=== PATIENT | male | born 1985 | race Caucasian/White ===

== ENCOUNTER 2017-11-01 18:57 | Emergency (ER) | payer SELFPAY ==
--- NOTE | 2017-11-01 21:12 | RAD ---
LEFT HAND THREE VIEW 11/01/17 HISTORY: Injury. Pain. COMPARISON: None. FINDINGS: Mild edema of the hypothenar soft tissues. No displaced fracture or malalignment. IMPRESSION: Soft tissue edema. No acute abnormality. POS: [facility]
== END 2017-11-01 20:55 | disposition home or self-care (01) ==
LOC: ERS 18:57
DX: S63.617A Unspecified sprain of left little finger, initial encounter (principal); E03.9 Hypothyroidism, unspecified; I10 Essential (primary) hypertension; K56.609 Unspecified intestinal obstruction, unspecified as to partial versus complete obstruction; F17.220 Nicotine dependence, chewing tobacco, uncomplicated; X50.1XXA Overexertion from prolonged static or awkward postures, initial encounter

== ENCOUNTER 2018-10-12 09:43 | Emergency (ER) | payer OTHER ==
--- NOTE | 2018-10-12 10:20 | RAD ---
SINGLE VIEW OF THE CHEST: COMPARISON: 07/07/2008. HISTORY: Upper chest pain. FINDINGS: Single view of the chest shows a normal sized cardiomediastinal silhouette. There is no evidence of c onsolidation, mass, or pleural effusion. The bones are unremarkable. IMPRESSION: No evidence of acute cardiopulmonary disease. POS: [facility]
[2018-10-12 10:23] LABS: #Basophils 0.1 thou/uL (0.0-0.2); #Eosinphils 0.1 thou/uL (0.0-0.7); #Lymphocytes 1.7 thou/uL (1.20-3.40); #Monocytes 0.4 thou/uL (0.11-0.59); #Neutrophils 4.1 thou/uL (1.40-6.50); %Basophils 1.7 % (0.0-1.0); %Eosinophils 1.8 % (0.0-10.0); %Monocytes 5.6 % (0.0-10.0); Mean Corpuscular HGB CONC 33.1 g/dL (32.0-36.0); Mean Corpuscular Hemoglobin 28.4 pg (27.0-31.0); Mean Corpuscular Volume 85.7 fL (78.0-98.0); Mean Platelet Volume 7.2 fL (7.4-10.4); Platelet Count 276 thou/uL (130-400); RBC Distribution Width 12.2 % (11.5-14.5); Red Blood Cell (RBC) Count 5.29 mill/uL (4.70-6.10); White Blood Cell (WBC) Count 6.4 thou/uL (4.8-10.8)
[2018-10-12] MEDS ORDERED: Aspirin Chewable 81 MG TAB ONE (10:25)
[2018-10-12] MEDS ORDERED: Nitroglycerin 2% Ointment 1 INCH/1 GM Packet ONE (10:25)
[2018-10-12 10:44] LABS: ALT (SGPT) 37 U/L (8-55); AST (SGOT) 21 U/L (5-34); Albumin 4.5 g/dL (3.5-5.0); Alkaline Phosphatase 57 U/L (40-150); Anion Gap 15 mmol/L (10-20); BUN (Urea Nitrogen) 20 mg/dL (8.9-20.6); Bilirubin, Total 0.6 mg/dL (0.2-1.2); CK (CPK) 229 U/L (30-200); Calc. Creatinine Clearance 0 mL/min (70-130); Calcium 9.8 mg/dL (7.8-10.44); Carbon Dioxide 22 mmol/L (22-29); Chloride 105 mmol/L (98-107); Estimated GFR-MDRD 48; Globulin 2.6 g/dL (2.4-3.5); Glucose 91 mg/dL (70-105); Lipase 47 U/L (8-78); Potassium 4.7 mmol/L (3.5-5.1); Protein, Total 7.1 g/dL (6.0-8.3); Sodium 137 mmol/L (136-145)
[2018-10-12] MEDS ORDERED: Acetaminophen 500 MG TAB ONE (14:05)
== END 2018-10-12 14:08 | disposition home or self-care (01) ==
LOC: ERS 09:43
DX: R07.89 Other chest pain (principal); Z71.6 Tobacco abuse counseling; E03.9 Hypothyroidism, unspecified; I10 Essential (primary) hypertension; F17.220 Nicotine dependence, chewing tobacco, uncomplicated
CPT/HCPCS: 36415; 71045; 80053; 82550; 83690; 84484; 85025; 85379; 93005; 99406

== ENCOUNTER 2018-11-11 19:50 | Emergency (ER) | payer OTHER, SELFPAY ==
[2018-11-11] MEDS ORDERED: Lidocaine 1% PF 5 ML VIAL ONE ×2 (20:59→22:00)
[2018-11-11] MEDS ORDERED: HYDROcodone/Acetaminophen 5/325 mg Tablet ONE (22:08)
--- NOTE | 2018-11-11 22:10 | RAD ---
THERE VIEWS RIGHT HAND: History: Crush injury to right pinky. FINDINGS: AP, lateral, and oblique views of the right hand obtained. Again, radiopaque foreign bodies seen in t he distal aspect of the first digit right hand. There is extensive soft tissue injury to the distal a spect of the fifth digit right hand. Some radiopaque material is seen in the soft tissues. The distal phalanx does not appear to be crushed and no evidence of associated PIP or DIP joint abnormality is seen. IMPRESSION: Soft tissue injury without evidence of bony abnormalities in the fifth digit right hand. POS: [facility]
== END 2018-11-11 23:12 | disposition home or self-care (01) ==
LOC: ERS 19:50
DX: S67.196A Crushing injury of right little finger, initial encounter (principal); S61.216A Laceration without foreign body of right little finger without damage to nail, initial encounter; S60.151A Contusion of right little finger with damage to nail, initial encounter; E03.9 Hypothyroidism, unspecified; I10 Essential (primary) hypertension; F17.220 Nicotine dependence, chewing tobacco, uncomplicated; Z79.899 Other long term (current) drug therapy; W23.0XXA Caught, crushed, jammed, or pinched between moving objects, initial encounter
CPT/HCPCS: 11740; 12001; J2001

== ENCOUNTER 2019-01-27 11:24 | Emergency (ER) | payer OTHER ==
[2019-01-27 12:18] LABS: ALT (SGPT) 49 U/L (8-55); AST (SGOT) 21 U/L (5-34); Albumin 4.7 g/dL (3.5-5.0); Alkaline Phosphatase 58 U/L (40-150); Anion Gap 16 mmol/L (10-20); BUN (Urea Nitrogen) 27 mg/dL (8.9-20.6); Bilirubin, Total 0.7 mg/dL (0.2-1.2); Calc. Creatinine Clearance 0 mL/min (70-130); Calcium 9.6 mg/dL (7.8-10.44); Carbon Dioxide 18 mmol/L (22-29); Chloride 107 mmol/L (98-107); Estimated GFR-MDRD 37; Glucose 119 mg/dL (70-105); Lipase 40 U/L (8-78); Potassium 4.9 mmol/L (3.5-5.1); Protein, Total 7.7 g/dL (6.0-8.3); Sodium 136 mmol/L (136-145)
[2019-01-27 12:19] LABS: #Eosinphils 0.1 thou/uL (0.0-0.7); #Lymphocytes 0.8 thou/uL (1.20-3.40); #Monocytes 0.5 thou/uL (0.11-0.59); #Neutrophils 12.6 thou/uL (1.40-6.50); %Basophils 0.1 % (0.0-1.0); %Eosinophils 0.5 % (0.0-10.0); %Lymphocytes 5.7 % (21.0-51.0); %Monocytes 3.8 % (0.0-10.0); %Neutrophils 89.9 % (42.0-75.0); Hemoglobin 16.7 g/dL (14.0-18.0); Mean Corpuscular HGB CONC 34.6 g/dL (32.0-36.0); Mean Corpuscular Hemoglobin 29.4 pg (27.0-31.0); Mean Corpuscular Volume 84.8 fL (78.0-98.0); Mean Platelet Volume 7.7 fL (7.4-10.4); Platelet Count 298 thou/uL (130-400); RBC Distribution Width 12.2 % (11.5-14.5); Red Blood Cell (RBC) Count 5.69 mill/uL (4.70-6.10)
[2019-01-27] MEDS ORDERED: Ondansetron ODT 4 MG TAB ONE (12:20)
[2019-01-27] MEDS ORDERED: Ondansetron PF 4 MG/2 ML Vial ONE (12:54)
[2019-01-27 13:18] LABS: Bilirubin Small (Negative); Blood, Urine Negative (Negative); Clarity CLEAR (Clear); Glucose, Urine (Dipstick) Negative (Negative); Leukocyte Negative (Negative); Nitrite Negative (Negative); Protein, Urine (Dipstick) 300 mg/dL (Neg-Trace); Specific Gravity, Urine 1.023 (1.002-1.036); Urobilinogen 0.2 mg/dL (0.2-1.0)
[2019-01-27 13:24] LABS: Bacteria/HPF None Seen HPF (None Seen); Pathc Cast-AUWi Flag 2.17 (0-2.49); Squamous Epithelial 0-3 HPF (0-3); WBC/HPF 0-3 HPF (0-3)
[2019-01-27 13:36] LABS: Hyaline Casts/LPF 4-6 HYALINE CAST LPF (0-3 Hyaline)
== END 2019-01-27 14:50 | disposition home or self-care (01) ==
LOC: ERS 11:24
DX: R11.2 Nausea with vomiting, unspecified (principal); R19.7 Diarrhea, unspecified; E03.9 Hypothyroidism, unspecified; I10 Essential (primary) hypertension; F17.220 Nicotine dependence, chewing tobacco, uncomplicated; Z79.899 Other long term (current) drug therapy
CPT/HCPCS: 36415; 80053; 81003; 81015; 83690; 85025; 96361; 96374; J2405; Q0162

== ENCOUNTER 2019-06-25 09:03 | Outpatient (CLI) | payer OTHER ==
--- NOTE | 2019-06-25 09:45 | ULT ---
Renal sonogram HISTORY: Solitary kidney. FINDINGS: Right kidney measures up to 11.4 cm. Normal appearance. No hydronephrosis or mass. No kidney is seen at the left renal fossa. Urinary bladder has normal appearance. Right ureteral jet visualized. IMPRESSION: Compensatory hypertrophy right kidney. No left kidney.
== END 2019-06-25 09:04 | disposition home or self-care (01) ==
LOC: BICULT 09:03
PROVIDERS: ATTEND Internal Medicine Nephrology
DX: N18.3 Chronic kidney disease, stage 3 (moderate) (principal); N28.81 Hypertrophy of kidney
CPT/HCPCS: 76775

== ENCOUNTER 2019-09-20 12:02 | Outpatient (CLI) | payer OTHER ==
--- NOTE | 2019-09-20 12:52 | RAD ---
EXAM: Left rib series HISTORY: Rib pain COMPARISON: None FINDINGS: Multiple views of the left ribs shows no evidence of displaced rib fracture. No underlying pleural th ickening or pneumothorax are seen. IMPRESSION: 1. No evidence of displaced rib fracture.
--- NOTE | 2019-09-20 12:52 | RAD ---
EXAM: Chest 2 views: HISTORY: Chest pain COMPARISON: 08/26/2010 FINDINGS: There is a normal-sized cardiomediastinal silhouette. There is no evidence of consolidation, mass, or pleural effusion. The bones are unremarkable. IMPRESSION: No evidence of acute cardiopulmonary disease
--- NOTE | 2019-09-20 12:54 | RAD ---
EXAM: 3 views of the cervical spine HISTORY: Right arm paresthesias COMPARISON: None FINDINGS: AP, lateral, and open mouth odontoid views of the cervical spine shows normal height and al ignment of the vertebral bodies without fracture or subluxation. The intervertebral discs are narrowed throughout the cervical spine with small surrounding osteophytes. No prevertebral soft tissu e swelling is seen. IMPRESSION: Mild degenerative changes of the cervical spine without acute osseous abnormality.
== END 2019-09-20 12:03 | disposition home or self-care (01) ==
LOC: BICRAD 12:02
PROVIDERS: ATTEND Physician Assistant
DX: R07.81 Pleurodynia (principal); R20.2 Paresthesia of skin; M47.812 Spondylosis without myelopathy or radiculopathy, cervical region
CPT/HCPCS: 71046; 72040

== ENCOUNTER 2019-11-24 23:33 | Emergency (ER) | payer OTHER ==
[2019-11-25 00:12] LABS: #Basophils 0.2 thou/uL (0.0-0.2); #Lymphocytes 1.5 thou/uL (1.20-3.40); #Monocytes 0.3 thou/uL (0.11-0.59); #Neutrophils 6.4 thou/uL (1.40-6.50); %Basophils 2.3 % (0.0-1.0); %Eosinophils 0.5 % (0.0-10.0); %Lymphocytes 18.1 % (21.0-51.0); %Neutrophils 75.1 % (42.0-75.0); Hemoglobin 16.4 g/dL (14.0-18.0); Mean Corpuscular HGB CONC 35.9 g/dL (32.0-36.0); Mean Corpuscular Hemoglobin 30.3 pg (27.0-31.0); Mean Corpuscular Volume 84.3 fL (78.0-98.0); Mean Platelet Volume 7.7 fL (7.4-10.4); Platelet Count 279 thou/uL (130-400); RBC Distribution Width 11.9 % (11.5-14.5); Red Blood Cell (RBC) Count 5.41 mill/uL (4.70-6.10); White Blood Cell (WBC) Count 8.5 thou/uL (4.8-10.8)
[2019-11-25 00:23] LABS: ALT (SGPT) 49 U/L (8-55); AST (SGOT) 20 U/L (5-34); Albumin 4.3 g/dL (3.5-5.0); Alkaline Phosphatase 68 U/L (40-110); Anion Gap 14 mmol/L (10-20); BUN (Urea Nitrogen) 21 mg/dL (8.9-20.6); Bilirubin, Total 0.4 mg/dL (0.2-1.2); Calc. Creatinine Clearance 0 mL/min (70-130); Calcium 9.9 mg/dL (7.8-10.44); Carbon Dioxide 24 mmol/L (22-29); Chloride 104 mmol/L (98-107); Estimated GFR-MDRD 39; Globulin 3.2 g/dL (2.4-3.5); Glucose 135 mg/dL (70-105); Potassium 4.3 mmol/L (3.5-5.1); Protein, Total 7.5 g/dL (6.0-8.3); Sodium 138 mmol/L (136-145)
[2019-11-25] MEDS ORDERED: Aspirin Chewable 81 MG TAB ONE (01:05)
--- NOTE | 2019-11-25 08:02 | RAD ---
PORTABLE CHEST: DATE: 11/25/2019. PROVIDED CLINICAL HISTORY: Chest pain. FINDINGS: Comparison 10/12/2018. Cardiac and mediastinal silhouette is within normal limits. Lungs are hypoinflated with accentuation of pulmonary bronchovascular markings. No focal consolidation, pleural fluid, or pneumothorax appar ent. IMPRESSION: Hypoinflated exam without evidence for an acute cardiopulmonary process. POS: [facility]
== END 2019-11-25 04:34 | disposition home or self-care (01) ==
LOC: ERS 23:33
DX: R07.9 Chest pain, unspecified (principal); R00.2 Palpitations; E03.9 Hypothyroidism, unspecified; I10 Essential (primary) hypertension; F17.220 Nicotine dependence, chewing tobacco, uncomplicated; Z79.899 Other long term (current) drug therapy
CPT/HCPCS: 36415; 71045; 80053; 83735; 84443; 84484; 85025; 85379; 93005; 96360; 96361

== ENCOUNTER 2020-03-07 12:05 | Emergency (ER) | payer OTHER | END 2020-03-07 13:30 | disposition home or self-care (01) | LOC: ERS 12:05 | DX: M54.5 Low back pain (principal); F17.220 Nicotine dependence, chewing tobacco, uncomplicated; E03.9 Hypothyroidism, unspecified; I10 Essential (primary) hypertension; Z79.899 Other long term (current) drug therapy | CPT/HCPCS: 99283 ==

== ENCOUNTER 2020-07-02 07:00 | Outpatient (CLI) | payer OTHER ==
[2020-07-02 18:56] LABS: Hemoglobin 14.4 g/dL (14.0-18.0); Mean Corpuscular Hemoglobin 29.1 PG (27.0-33.0); Mean Corpuscular Volume 83.4 fl (80.0-100.0); Mean Platelet Volume 10.1 fl (7.4-10.4); Platelet Count 243 10x3/uL (130-400); RBC Distribution Width 12.3 % (11.5-14.5); Red Blood Cell (RBC) Count 4.94 10x6/uL (4.40-5.80); White Blood Cell (WBC) Count 7.1 10x3/uL (4.5-11.0)
[2020-07-02 19:31] LABS: Anion Gap 16 mmol/L (10-20); BUN (Urea Nitrogen) 30 mg/dL (8.9-20.6); Calc. Creatinine Clearance 0 mL/min (70-130); Calcium 9.2 mg/dL (7.8-10.44); Carbon Dioxide 22 mmol/L (22-29); Chloride 104 mmol/L (98-107); Estimated GFR-MDRD 31; Glucose 90 mg/dL (70-105); Potassium 4.9 mmol/L (3.5-5.1); Sodium 137 mmol/L (136-145)
[2020-07-03 15:04] LABS: SARS-CoV-2 MS2 Positive; SARS-CoV-2 N Gene Negative; SARS-CoV-2 S Gene Negative; SARS-CoV-2 by NAA Not Detected (NotDetected); SARS-CoV-2 orf1ab Negative
== END 2020-07-02 07:01 | disposition home or self-care (01) ==
LOC: LABBT 07:00
PROVIDERS: ATTEND Urology
DX: Z01.812 Encounter for preprocedural laboratory examination (principal); Z20.828 Contact with and (suspected) exposure to other viral communicable diseases; N18.9 Chronic kidney disease, unspecified
CPT/HCPCS: 80048; 85027; 86850; 86900; 86901; 87635; U0003

== ENCOUNTER 2020-07-07 07:47 | Day surgery (SDC) | payer OTHER ==
[2020-07-06 15:14] VITALS: BMI 34.0
[2020-07-07] MEDS ORDERED: Fentanyl 100 MCG/2 ML VIAL ONE ×2 (08:53→12:08)
[2020-07-07] MEDS ORDERED: SUGAMMADEX SODIUM 200 MG/2 ML VIAL ONE (08:54)
[2020-07-07 09:45] LABS: Prothrombin Time 13.9 sec (12.0-14.7)
[2020-07-07 09:46] LABS: PTT 32.6 sec (22.9-36.1)
[2020-07-07] MEDS ORDERED: Bupivacaine PF 0.5% 30 ML VIAL ONE (10:23)
[2020-07-07] MEDS ORDERED: Lidocaine 1% w/Epinephrine 1:100K 20 ML VIAL ONE (10:23)
[2020-07-07] MEDS ORDERED: Rocuronium Bromide 10 MG/ML (10ML VIAL) ONE (11:30)
[2020-07-07] MEDS ORDERED: Succinylcholine 200 MG/10 ml SYRINGE FS ONE (11:30)
[2020-07-07] MEDS ORDERED: ePHEDrine 50 MG/ML VIAL ONE (11:30)
[2020-07-07] MEDS ORDERED: PROPOFOL 200 MG/20 ML VIAL ONE (11:30)
[2020-07-07] MEDS ORDERED: Lidocaine 1% PF 5 ML VIAL ONE (11:30)
[2020-07-07] MEDS ORDERED: Morphine Sulfate 2 MG/ML SYRINGE SLOW IVP PRN (11:49)
[2020-07-07] MEDS ORDERED: HYDROmorphone 2 MG/ML VIAL SLOW IVP PRN (11:49)
[2020-07-07] MEDS ORDERED: Ondansetron HCl/PF 4 MG/2 ML Vial IVP PRN (11:49)
[2020-07-07] MEDS ORDERED: PACU-Morphine 4MG/ML VIAL SLOW IVP PRN (11:49)
[2020-07-07] MEDS ORDERED: Promethazine HCl 25 MG/ML VIAL SLOW IVP PRN (11:49)
[2020-07-07] MEDS ORDERED: Promethazine HCl 25 MG/ML VIAL IM PRN (11:49)
[2020-07-07] MEDS ORDERED: Meperidine HCl/PF 25 MG/ML VIAL SLOW IVP PRN (11:49)
[2020-07-07] MEDS ORDERED: Morphine 4 MG/ML VIAL ONE (12:26)
[2020-07-07] MEDS ORDERED: Morphine 2 MG/ML VIAL ONE (12:39)
[2020-07-07] MEDS ORDERED: HYDROcodone/Acetaminophen 5/325 mg Tablet ONE (13:03)
--- NOTE | 2020-07-07 18:44 | OP ---
DATE OF PROCEDURE: 07/07/2020 PREOPERATIVE DIAGNOSES: Chronic kidney disease, right solitary kidney. POSTOPERATIVE DIAGNOSES: Chronic kidney disease, right solitary kidney. PROCEDURE PERFORMED: Laparoscopic right renal biopsy. ANESTHESIA: General. COMPLICATIONS: None. BLOOD LOSS: None. SPECIMEN: Renal Rosales-Cut biopsy x3. DESCRIPTION OF PROCEDURE: After informed consent, the patient was taken to the operating room, transferred to the table on his own power. Anesthesia was established. A time-out was performed ensuring the correct patient, site, and procedure. Preoperative antibiotics were administered. He was prepped and draped in the lateral position with the right side up. I began by obtaining insufflation with a Veress needle. I then passed a 5 mm camera trocar lateral to the umbilicus. The camera was then inserted, noting no intraabdominal injuries. A second trocar was placed in the right upper quadrant and I was able to use a cautery hook to take down the attachments of the colon to the right wall. I was able to expose the right kidney, and under direct visualization, passed a Rosales-Cut biopsy through a small stab incision on his right flank, where I had obtained access with the Veress needle and performed 3 biopsies using the Rosales-Cut biopsy needle. Compression using a laparoscopic peanut was performed after each biopsy. Once the biopsies were taken, there was no active bleeding and no hematoma. The camera was removed and then the belly deflated before removing the trocars. The incisions were closed with 4-0 Monocryl and Dermabond. He was then awoken from anesthesia, transferred back to his hospital bed, and taken to PACU in stable condition, where he will discharge home upon recovery. Job ID: [id number]
== END 2020-07-07 14:02 | disposition home or self-care (01) ==
LOC: SDC 07:47
PROVIDERS: ATTEND Urology
PROC: 0TB04ZX Excision of Right Kidney, Percutaneous Endoscopic Approach, Diagnostic (ICD-10-PCS; principal; 2020-07-07)
DX: Q60.0 Renal agenesis, unilateral (principal); N18.9 Chronic kidney disease, unspecified; N17.9 Acute kidney failure, unspecified; N26.9 Renal sclerosis, unspecified; E66.9 Obesity, unspecified; Z68.34 Body mass index [BMI] 34.0-34.9, adult; Z79.899 Other long term (current) drug therapy; Z88.1 Allergy status to other antibiotic agents
CPT/HCPCS: 36415; 85610; 85730; 86850; 86900; 86901; 88329; J0690; J2270; J2704; J3010; J3490; S0020

== ENCOUNTER 2020-08-23 18:22 | Emergency (ER) | payer OTHER ==
--- NOTE | 2020-08-23 18:48 | RAD ---
XR Foot Rt 3 View STANDARD INDICATION: Right foot pain COMPARISON: None. FINDINGS: Bones: No acute fracture identified. Joints: Joints spaces appear preserved. Lisfranc alignment: Lisfranc alignment appears within normal limits. Soft tissues: No soft tissue injury demonstrated. No radiographic foreign body demonstrated. IMPRESSION: No acute osseous abnormality.
--- NOTE | 2020-08-23 18:51 | RAD ---
XR Ankle Rt 3 View STANDARD INDICATION: Ankle injury. COMPARISON: None. FINDINGS: Bones: Intact. Ankle mortise: Symmetric. Talar Dome: Intact. Subtalar joint: Normal. Visualized hindfoot: Normal. Periarticular soft tissues: Normal. IMPRESSION: 1. No acute fracture or subluxation demonstrated.
== END 2020-08-23 19:46 | disposition home or self-care (01) ==
LOC: ERS 18:22
DX: S93.601A Unspecified sprain of right foot, initial encounter (principal); I10 Essential (primary) hypertension; E03.9 Hypothyroidism, unspecified; F17.220 Nicotine dependence, chewing tobacco, uncomplicated; F17.200 Nicotine dependence, unspecified, uncomplicated; X50.1XXA Overexertion from prolonged static or awkward postures, initial encounter

== ENCOUNTER 2020-08-27 18:44 | Emergency (ER) | payer OTHER | END 2020-08-27 19:56 | disposition home or self-care (01) | LOC: ERS 18:44 | DX: M79.671 Pain in right foot (principal); E03.9 Hypothyroidism, unspecified; I10 Essential (primary) hypertension; F17.220 Nicotine dependence, chewing tobacco, uncomplicated | CPT/HCPCS: 99283 ==

== ENCOUNTER 2022-11-11 15:47 | Inpatient (IN) | payer OTHER ==
[2022-11-11 16:21] LABS: #Eosinphils 0.2 thou/uL (0.0-0.7); #Lymphocytes 2.7 thou/uL (1.20-3.40); #Monocytes 0.4 thou/uL (0.11-0.59); %Basophils 0.4 % (0.0-1.0); %Lymphocytes 32.4 % (21.0-51.0); %Monocytes 4.9 % (0.0-10.0); %Neutrophils 60.3 % (42.0-75.0); Hemoglobin 14.3 g/dL (14.0-18.0); Mean Corpuscular HGB CONC 35.6 g/dL (32.0-36.0); Mean Corpuscular Hemoglobin 31.2 pg (27.0-31.0); Mean Corpuscular Volume 87.8 fl (78.0-98.0); Mean Platelet Volume 7.2 fL (7.4-10.4); Platelet Count 265 10x3/uL (130-400); RBC Distribution Width 12.1 % (11.5-14.5); Red Blood Cell (RBC) Count 4.57 mill/uL (4.70-6.10); White Blood Cell (WBC) Count 8.2 10x3/uL (4.8-10.8)
[2022-11-11 16:23] LABS: Bacteria/HPF None Seen HPF (None Seen); Bilirubin Negative (Negative); Blood, Urine 1+ (Negative); Clarity Clear (Clear); Glucose, Urine (Dipstick) Normal (Negative); Ketone, Urine Negative (Negative); Leukocyte Negative Leu/uL (Negative); Nitrite Negative (Negative); Protein, Urine (Dipstick) 200 mg/dL (Neg-Trace); RBC/HPF 0-3 HPF (0-3); Squamous Epithelial 0-3 HPF (0-3); Urobilinogen Normal mg/dL (Less than 2); WBC/HPF 0-3 HPF (0-3)
[2022-11-11 16:45] LABS: ALT (SGPT) 30 U/L (8-55); AST (SGOT) 20 U/L (5-34); Albumin 4.3 g/dL (3.5-5.0); Alkaline Phosphatase 61 U/L (40-110); Anion Gap 16 mmol/L (10-20); BUN (Urea Nitrogen) 49 mg/dL (8.9-20.6); Bilirubin, Total 0.3 mg/dL (0.2-1.2); Calc. Creatinine Clearance 0 mL/min (70-130); Calcium 9.5 mg/dL (7.8-10.44); Carbon Dioxide 22 mmol/L (22-29); Chloride 106 mmol/L (98-107); Estimated GFR 12; Globulin 2.9 g/dL (2.4-3.5); Glucose 89 mg/dL (70-105); Lipase 73 U/L (8-78); Potassium 3.9 mmol/L (3.5-5.1); Protein, Total 7.2 g/dL (6.0-8.3); Sodium 140 mmol/L (136-145)
[2022-11-11] MEDS ORDERED: Meropenem 1 GM in Sodium Chloride 0.9% 100 ML IVPB SCH (16:45)
[2022-11-11 17:07] LABS: CKMB 3.1 ng/mL (0-6.6)
[2022-11-11] MEDS ORDERED: Ondansetron ODT 4 MG TAB PO PRN (20:55)
[2022-11-11] MEDS ORDERED: Ondansetron PF 4 MG/2 ML Vial IVP PRN (20:55)
[2022-11-11] MEDS ORDERED: Acetaminophen 650 MG Suppository PR PRN (20:55)
[2022-11-11 21:50] VITALS: BMI 35.9
[2022-11-11 22:36] LABS: Troponin I 0.065 ng/mL (< 0.028)
[2022-11-11 22:40] LABS: SARS-CoV-2 NAA Rapid Test Not Detected (NotDetected)
[2022-11-12] MEDS: hydrALAZINE 20 MG/ML VIAL SLOW IVP PRN ×2 (00:30→05:50)
[2022-11-12] MEDS: Acetaminophen 325 MG TAB PO PRN ×3 (01:30→13:31)
[2022-11-12 04:29] LABS: #Eosinphils 0.1 thou/uL (0.0-0.7); #Lymphocytes 2.4 thou/uL (1.20-3.40); #Monocytes 0.5 thou/uL (0.11-0.59); #Neutrophils 5.3 thou/uL (1.40-6.50); %Basophils 0.5 % (0.0-1.0); %Eosinophils 1.6 % (0.0-10.0); %Lymphocytes 28.4 % (21.0-51.0); %Monocytes 5.6 % (0.0-10.0); %Neutrophils 63.9 % (42.0-75.0); Hemoglobin 13.2 g/dL (14.0-18.0); Mean Corpuscular HGB CONC 35.7 g/dL (32.0-36.0); Mean Corpuscular Hemoglobin 31.3 pg (27.0-31.0); Mean Corpuscular Volume 87.6 fl (78.0-98.0); Mean Platelet Volume 7.5 fL (7.4-10.4); Platelet Count 225 10x3/uL (130-400); RBC Distribution Width 12.2 % (11.5-14.5); Red Blood Cell (RBC) Count 4.22 mill/uL (4.70-6.10); White Blood Cell (WBC) Count 8.3 10x3/uL (4.8-10.8)
[2022-11-12 04:51] LABS: Anion Gap 13 mmol/L (10-20); BUN (Urea Nitrogen) 49 mg/dL (8.9-20.6); Calc. Creatinine Clearance 28 mL/min (70-130); Carbon Dioxide 22 mmol/L (22-29); Chloride 107 mmol/L (98-107); Estimated GFR 12; Glucose 92 mg/dL (70-105); Potassium 3.9 mmol/L (3.5-5.1); Sodium 138 mmol/L (136-145)
[2022-11-12] MEDS: Levothyroxine 150 MCG TAB PO SCH (05:48)
[2022-11-12] MEDS ORDERED: Sodium Chloride 0.65% Nasal 44 ML BOT EA NARE PRN (07:58)
[2022-11-12] MEDS ORDERED: hydrALAZINE 20 MG/ML VIAL SLOW IVP SCH (08:15)
[2022-11-12] MEDS: Calcitriol 0.25 MCG CAP PO SCH (08:48)
[2022-11-12] MEDS: Allopurinol 100 MG TAB PO SCH (08:48)
[2022-11-12] MEDS: Atorvastatin Calcium 10 MG TAB PO SCH (08:48)
[2022-11-12] MEDS: Cholecalciferol (Vitamin D3) 400 UNITS TAB PO SCH (08:48)
[2022-11-12] MEDS ORDERED: hydrALAZINE 25 MG TAB PO SCH (09:00)
[2022-11-12] MEDS ORDERED: cloNIDine 0.1mg/24 Hour PATCH TD SCH (09:00)
[2022-11-12] MEDS ORDERED: Labetalol HCl 100 MG/20 ML VIAL SLOW IVP PRN (09:07)
[2022-11-12] MEDS ORDERED: Morphine 2 MG/ML VIAL SLOW IVP PRN (10:57)
[2022-11-12] MEDS: hydrALAZINE 25 MG TAB PO SCH ×2 (13:25→20:27)
[2022-11-12] MEDS ORDERED: niCARdipine 40MG In NaCl 40 MG/200 ML BAG IVPB SCH (15:45)
[2022-11-12] MEDS: niCARdipine 50 MG in Sodium Chloride 0.9% 250 ML 230 ML IV SCH ×2 (16:50→19:28)
[2022-11-12] MEDS ORDERED: Melatonin 3 MG TAB PO SCH (20:00)
[2022-11-12] MEDS ORDERED: Acetaminophen 500 MG TAB PO SCH (20:15)
[2022-11-12] MEDS: Fluticasone Propionate Nasal Spray 16 gm Bottle NASAL SCH (20:22)
[2022-11-12] MEDS: Heparin 5,000 UNITS/ML VIAL SC SCH (20:27)
[2022-11-12] MEDS ORDERED: Sodium Chloride 0.9% 500 ML IV SCH (20:45)
[2022-11-12 21:12] LABS: Amphetamine Not Detected (NotDetected); Barbiturates Screen Not Detected (NotDetected); Benzodiazepine Screen Not Detected (NotDetected); Cocaine Metabolite Screen Not Detected (NotDetected); Methadone Not Detected (NotDetected); Methamphetamine Not Detected (NotDetected); Opiate Screen Detected (NotDetected); Oxycodone Screen Not Detected (NotDetected); Phencyclidine (PCP) Not Detected (NotDetected); THC/Cannabinoid Screen Not Detected (NotDetected); Tricyclic Screen Not Detected (NotDetected)
[2022-11-13] MEDS: niCARdipine 50 MG in Sodium Chloride 0.9% 250 ML 230 ML IV SCH (00:59)
[2022-11-13 04:01] LABS: #Eosinphils 0.1 thou/uL (0.0-0.7); #Lymphocytes 1.2 thou/uL (1.20-3.40); #Monocytes 0.6 thou/uL (0.11-0.59); %Basophils 0.3 % (0.0-1.0); %Eosinophils 0.7 % (0.0-10.0); %Lymphocytes 14.8 % (21.0-51.0); %Monocytes 7.1 % (0.0-10.0); %Neutrophils 77.1 % (42.0-75.0); Hemoglobin 12.8 g/dL (14.0-18.0); Mean Corpuscular HGB CONC 35.3 g/dL (32.0-36.0); Mean Corpuscular Hemoglobin 31.2 pg (27.0-31.0); Mean Corpuscular Volume 88.4 fl (78.0-98.0); Mean Platelet Volume 7.5 fL (7.4-10.4); Platelet Count 207 10x3/uL (130-400); RBC Distribution Width 12.3 % (11.5-14.5); White Blood Cell (WBC) Count 7.7 10x3/uL (4.8-10.8)
[2022-11-13 04:18] LABS: Anion Gap 16 mmol/L (10-20); BUN (Urea Nitrogen) 53 mg/dL (8.9-20.6); Calc. Creatinine Clearance 25 mL/min (70-130); Calcium 8.9 mg/dL (7.8-10.44); Carbon Dioxide 20 mmol/L (22-29); Chloride 109 mmol/L (98-107); Estimated GFR 11; Glucose 97 mg/dL (70-105); Sodium 140 mmol/L (136-145)
[2022-11-13] MEDS: Levothyroxine 150 MCG TAB PO SCH (05:30)
[2022-11-13] MEDS: NIFEdipine XL 30 MG TAB PO SCH (08:36)
[2022-11-13] MEDS: hydrALAZINE 25 MG TAB PO SCH ×3 (08:36→20:40)
[2022-11-13] MEDS: Heparin 5,000 UNITS/ML VIAL SC SCH ×2 (08:36→20:39)
[2022-11-13] MEDS ORDERED: Midazolam HCl 2 mg/2 ml Vial ONE (10:50)
[2022-11-13] MEDS ORDERED: FENTANYL 50 MCG/ML 1 ML VIAL ONE (10:50)
[2022-11-13] MEDS ORDERED: Ketamine 50 MG/ML (10ML VIAL) ONE (10:54)
[2022-11-13] MEDS ORDERED: PROPOFOL 200 MG/20 ML VIAL ONE (11:45)
[2022-11-13] MEDS: Allopurinol 100 MG TAB PO SCH (13:02)
[2022-11-13] MEDS: Cholecalciferol (Vitamin D3) 400 UNITS TAB PO SCH (13:02)
[2022-11-13] MEDS: Atorvastatin Calcium 10 MG TAB PO SCH (13:03)
[2022-11-13] MEDS: Calcitriol 0.25 MCG CAP PO SCH (13:03)
[2022-11-13] MEDS: Fluticasone Propionate Nasal Spray 16 gm Bottle NASAL SCH (13:04)
[2022-11-13 15:04] LABS: HBSAB Concentration Less than 8.00 mIU/mL; HBSAg Index 0.25 S/CO (0-0.99); Hep B Core Total Ab Non-Reactive (NonReactive); Hep B Core Total Index 0.05 S/CO (0-0.79); Hep B Surf Ag Non-Reactive S/CO (NonReactive); Hep C IgG Ab Non-Reactive (NonReactive); Hep C Index 0.07 S/CO (0-0.79)
[2022-11-13] MEDS ORDERED: Heparin 10,000 UNITS/ 10 ML VIAL ONE (15:58)
[2022-11-13 16:21] LABS: Hep B Surf AB NonReactive (NonReactive)
[2022-11-14 05:02] LABS: #Eosinphils 0.1 thou/uL (0.0-0.7); #Lymphocytes 1.8 thou/uL (1.20-3.40); #Monocytes 0.6 thou/uL (0.11-0.59); %Basophils 0.4 % (0.0-1.0); %Eosinophils 1.8 % (0.0-10.0); %Lymphocytes 27.2 % (21.0-51.0); %Monocytes 8.8 % (0.0-10.0); %Neutrophils 61.9 % (42.0-75.0); Hemoglobin 12.9 g/dL (14.0-18.0); Mean Corpuscular HGB CONC 35.5 g/dL (32.0-36.0); Mean Corpuscular Hemoglobin 31.6 pg (27.0-31.0); Mean Corpuscular Volume 88.9 fl (78.0-98.0); Mean Platelet Volume 7.8 fL (7.4-10.4); Platelet Count 181 10x3/uL (130-400); Red Blood Cell (RBC) Count 4.09 mill/uL (4.70-6.10); White Blood Cell (WBC) Count 6.5 10x3/uL (4.8-10.8)
[2022-11-14] MEDS: Levothyroxine 150 MCG TAB PO SCH (05:16)
[2022-11-14 05:26] LABS: Anion Gap 15 mmol/L (10-20); BUN (Urea Nitrogen) 50 mg/dL (8.9-20.6); Calc. Creatinine Clearance 28 mL/min (70-130); Calcium 9.1 mg/dL (7.8-10.44); Carbon Dioxide 22 mmol/L (22-29); Chloride 105 mmol/L (98-107); Estimated GFR 13; Glucose 95 mg/dL (70-105); Potassium 4.3 mmol/L (3.5-5.1); Sodium 138 mmol/L (136-145)
[2022-11-14] MEDS: Atorvastatin Calcium 10 MG TAB PO SCH (08:41)
[2022-11-14] MEDS: hydrALAZINE 25 MG TAB PO SCH ×4 (08:41→20:37)
[2022-11-14] MEDS: Heparin 5,000 UNITS/ML VIAL SC SCH ×2 (08:41→20:37)
[2022-11-14] MEDS: Cholecalciferol (Vitamin D3) 400 UNITS TAB PO SCH (08:42)
[2022-11-14] MEDS: NIFEdipine XL 30 MG TAB PO SCH (08:42)
[2022-11-14] MEDS: Calcitriol 0.25 MCG CAP PO SCH (08:42)
[2022-11-14] MEDS: Allopurinol 100 MG TAB PO SCH (08:42)
[2022-11-14] MEDS: Fluticasone Propionate Nasal Spray 16 gm Bottle NASAL SCH (08:43)
[2022-11-14] MEDS ORDERED: Tuberculin PPD 0.1 ML VIAL I-DERMAL SCH ×2 (08:45→09:15)
[2022-11-14] MEDS ORDERED: Activase 2 MG VIAL CATH SCH ×2 (11:00→13:30)
[2022-11-14] MEDS ORDERED: Sterile Water 10 ML VIAL IVP SCH (11:00)
[2022-11-15 05:10] LABS: #Eosinphils 0.2 thou/uL (0.0-0.7); #Lymphocytes 2.4 thou/uL (1.20-3.40); #Monocytes 0.5 thou/uL (0.11-0.59); #Neutrophils 3.7 thou/uL (1.40-6.50); %Basophils 0.5 % (0.0-1.0); %Eosinophils 2.7 % (0.0-10.0); %Monocytes 7.1 % (0.0-10.0); %Neutrophils 54.8 % (42.0-75.0); Hemoglobin 13.3 g/dL (14.0-18.0); Mean Corpuscular HGB CONC 35.9 g/dL (32.0-36.0); Mean Corpuscular Hemoglobin 31.8 pg (27.0-31.0); Mean Corpuscular Volume 88.3 fl (78.0-98.0); Mean Platelet Volume 7.8 fL (7.4-10.4); Platelet Count 177 10x3/uL (130-400); RBC Distribution Width 11.9 % (11.5-14.5); White Blood Cell (WBC) Count 6.8 10x3/uL (4.8-10.8)
[2022-11-15 05:28] LABS: Anion Gap 16 mmol/L (10-20); BUN (Urea Nitrogen) 50 mg/dL (8.9-20.6); Calc. Creatinine Clearance 29 mL/min (70-130); Calcium 8.8 mg/dL (7.8-10.44); Carbon Dioxide 19 mmol/L (22-29); Chloride 105 mmol/L (98-107); Estimated GFR 14; Glucose 105 mg/dL (70-105); Magnesium 2.2 mg/dL (1.6-2.6); Sodium 136 mmol/L (136-145)
[2022-11-15 05:29] LABS: Phosphorus 5.8 mg/dL (2.3-4.7)
[2022-11-15] MEDS: Levothyroxine 150 MCG TAB PO SCH (06:40)
[2022-11-15] MEDS ORDERED: Bupivacaine HCl 0.5%/Epinephrine 1:200,000/PF 30 ml Vial ONE (08:46)
[2022-11-15] MEDS ORDERED: Heparin 10,000 UNITS/ 10 ML VIAL ONE (08:46)
[2022-11-15] MEDS ORDERED: Lidocaine 2% PF 5 ML VIAL ONE (08:46)
[2022-11-15] MEDS ORDERED: Sodium Chloride 0.9% 100 ML ONE (09:02)
[2022-11-15] MEDS ORDERED: CEFAZOLIN 2 GM VIAL ONE (09:02)
[2022-11-15] MEDS ORDERED: PROPOFOL 40 ML ONE (09:06)
[2022-11-15] MEDS ORDERED: fentaNYL PF 100 MCG/2 ML SYRINGE ONE (09:06)
[2022-11-15] MEDS ORDERED: PROPOFOL 200 MG/20 ML VIAL ONE (09:07)
[2022-11-15] MEDS ORDERED: Lidocaine 1% PF 5 ML VIAL ONE (09:07)
[2022-11-15] MEDS ORDERED: Ondansetron HCl/PF 4 MG/2 ML Vial IVP PRN (10:30)
[2022-11-15] MEDS ORDERED: Promethazine HCl 25 MG/ML VIAL IM PRN (10:30)
[2022-11-15] MEDS: Fluticasone Propionate Nasal Spray 16 gm Bottle NASAL SCH (11:18)
[2022-11-15] MEDS: Heparin 5,000 UNITS/ML VIAL SC SCH ×2 (11:19→20:37)
[2022-11-15] MEDS: Calcitriol 0.25 MCG CAP PO SCH (11:19)
[2022-11-15] MEDS: hydrALAZINE 25 MG TAB PO SCH ×3 (11:19→18:46)
[2022-11-15] MEDS: Atorvastatin Calcium 10 MG TAB PO SCH (11:20)
[2022-11-15] MEDS: Allopurinol 100 MG TAB PO SCH (11:20)
[2022-11-15] MEDS: NIFEdipine XL 30 MG TAB PO SCH (11:20)
[2022-11-15] MEDS: Cholecalciferol (Vitamin D3) 400 UNITS TAB PO SCH (11:21)
[2022-11-15] MEDS: Acetaminophen 325 MG TAB PO PRN (20:17)
[2022-11-15] MEDS ORDERED: Morphine 2 MG/ML VIAL SLOW IVP SCH (21:00)
[2022-11-16 05:18] LABS: Anion Gap 18 mmol/L (10-20); BUN (Urea Nitrogen) 37 mg/dL (8.9-20.6); Calc. Creatinine Clearance 32 mL/min (70-130); Calcium 9.4 mg/dL (7.8-10.44); Carbon Dioxide 22 mmol/L (22-29); Chloride 100 mmol/L (98-107); Estimated GFR 15; Glucose 97 mg/dL (70-105); Potassium 4.3 mmol/L (3.5-5.1); Sodium 136 mmol/L (136-145)
[2022-11-16] MEDS: Levothyroxine 150 MCG TAB PO SCH (06:02)
[2022-11-16] MEDS: Fluticasone Propionate Nasal Spray 16 gm Bottle NASAL SCH (09:15)
[2022-11-16] MEDS: hydrALAZINE 25 MG TAB PO SCH ×3 (12:56→21:13)
[2022-11-16] MEDS: Acetaminophen 325 MG TAB PO PRN ×2 (14:42→21:12)
[2022-11-16] MEDS: Cholecalciferol (Vitamin D3) 400 UNITS TAB PO SCH (14:44)
[2022-11-16] MEDS: NIFEdipine XL 30 MG TAB PO SCH (14:44)
[2022-11-16] MEDS: Atorvastatin Calcium 10 MG TAB PO SCH (14:44)
[2022-11-16] MEDS: Allopurinol 100 MG TAB PO SCH (14:44)
[2022-11-16] MEDS: Calcitriol 0.25 MCG CAP PO SCH (14:45)
[2022-11-16] MEDS: Heparin 5,000 UNITS/ML VIAL SC SCH ×2 (14:46→21:12)
[2022-11-16] MEDS ORDERED: Heparin 10,000 UNITS/ 10 ML VIAL ONE (15:31)
[2022-11-17] MEDS: Levothyroxine 150 MCG TAB PO SCH (05:49)
[2022-11-17] MEDS: Allopurinol 100 MG TAB PO SCH (08:26)
[2022-11-17] MEDS: Atorvastatin Calcium 10 MG TAB PO SCH (08:26)
[2022-11-17] MEDS: NIFEdipine XL 30 MG TAB PO SCH (08:26)
[2022-11-17] MEDS: Calcitriol 0.25 MCG CAP PO SCH (08:26)
[2022-11-17] MEDS: Cholecalciferol (Vitamin D3) 400 UNITS TAB PO SCH (08:26)
[2022-11-17] MEDS: Heparin 5,000 UNITS/ML VIAL SC SCH ×2 (08:27→21:27)
[2022-11-17] MEDS: Fluticasone Propionate Nasal Spray 16 gm Bottle NASAL SCH (08:27)
[2022-11-17] MEDS: hydrALAZINE 25 MG TAB PO SCH ×3 (08:27→21:27)
[2022-11-17] MEDS ORDERED: READ PPD TEST SITE PO SCH (09:00)
[2022-11-17] MEDS: Sevelamer Carbonate 800 MG TAB PO SCH ×2 (13:45→18:09)
[2022-11-18] MEDS: Levothyroxine 150 MCG TAB PO SCH (05:47)
[2022-11-18 08:17] VITALS: BP 137/89; TEMP 97.7
[2022-11-18] MEDS ORDERED: Heparin 10,000 UNITS/ 10 ML VIAL ONE (08:54)
[2022-11-18] MEDS: Sevelamer Carbonate 800 MG TAB PO SCH ×2 (12:48→13:47)
[2022-11-18] MEDS: hydrALAZINE 25 MG TAB PO SCH (12:49)
[2022-11-18] MEDS: Heparin 5,000 UNITS/ML VIAL SC SCH (12:49)
[2022-11-18] MEDS: Acetaminophen 325 MG TAB PO PRN (13:15)
[2022-11-18] MEDS: Cholecalciferol (Vitamin D3) 400 UNITS TAB PO SCH (13:16)
[2022-11-18] MEDS: Allopurinol 100 MG TAB PO SCH (13:16)
[2022-11-18] MEDS: Atorvastatin Calcium 10 MG TAB PO SCH (13:17)
[2022-11-18] MEDS: NIFEdipine XL 30 MG TAB PO SCH (13:17)
[2022-11-18] MEDS: Fluticasone Propionate Nasal Spray 16 gm Bottle NASAL SCH (13:18)
[2022-11-18] MEDS: Calcitriol 0.25 MCG CAP PO SCH (13:18)
== END 2022-11-18 14:15 | disposition home or self-care (01) | DRG 674 ==
LOC: ERS 15:47 → 2SW 19:42 → OBSVTOIN 11-12 15:43 → CCU 11-12 16:46 → 2SW 11-14 22:54
PROVIDERS: ADMIT Family Medicine; ATTEND Family Medicine
PROC: 5A1D70Z Performance of Urinary Filtration, Intermittent, Less than 6 Hours Per Day (ICD-10-PCS; principal; 2022-11-13)
PROC: 0JH63XZ Insertion of Tunneled Vascular Access Device into Chest Subcutaneous Tissue and Fascia, Percutaneous Approach (ICD-10-PCS; 2022-11-15)
PROC: B5181ZA Fluoroscopy of Superior Vena Cava using Low Osmolar Contrast, Guidance (ICD-10-PCS; 2022-11-15)
PROC: B548ZZA Ultrasonography of Superior Vena Cava, Guidance (ICD-10-PCS; 2022-11-15)
PROC: 02H633Z Insertion of Infusion Device into Right Atrium, Percutaneous Approach (ICD-10-PCS; 2022-11-15)
DX: N17.9 Acute kidney failure, unspecified (principal); I16.1 Hypertensive emergency; Q60.0 Renal agenesis, unilateral; N04.1 Nephrotic syndrome with focal and segmental glomerular lesions; N18.6 End stage renal disease; Z20.822 Contact with and (suspected) exposure to COVID-19; E03.9 Hypothyroidism, unspecified; E78.5 Hyperlipidemia, unspecified; E66.9 Obesity, unspecified; I10 Essential (primary) hypertension; M10.9 Gout, unspecified; E83.39 Other disorders of phosphorus metabolism; N25.81 Secondary hyperparathyroidism of renal origin; Z68.33 Body mass index [BMI] 33.0-33.9, adult; Z88.1 Allergy status to other antibiotic agents; Z79.899 Other long term (current) drug therapy; Z79.890 Hormone replacement therapy; Z90.49 Acquired absence of other specified parts of digestive tract; Z98.890 Other specified postprocedural states; Z76.82 Awaiting organ transplant status
CPT/HCPCS: 36415; 36416; 70450; 71045; 80048; 80053; 80306; 81003; 81015; 82553; 83605; 83690; 83735; 83880; 84100; 84439; 84443; 84484; 85025; 85379; 86580; 86704; 87040; 87804; 90935; 93005; 93306; 96365; 96375; 96376; C1752; G0257; G0378; J0360; J1642; J1644; J2001; J2185; J2250; J2272; J2704; J3010; J3490; J7030; J7050; U0002

== ENCOUNTER 2022-12-02 17:09 | Emergency (ER) | payer OTHER ==
[2022-12-02] MEDS ORDERED: Acetaminophen 500 MG TAB ONE (17:39)
[2022-12-02] MEDS ORDERED: Morphine 4 MG/ML VIAL ONE (17:39)
[2022-12-02] MEDS ORDERED: Ondansetron PF 4 MG/2 ML Vial ONE (17:39)
[2022-12-02 18:13] LABS: ALT (SGPT) 43 U/L (8-55); AST (SGOT) 25 U/L (5-34); Albumin 4.6 g/dL (3.5-5.0); Alkaline Phosphatase 65 U/L (40-110); Anion Gap 13 mmol/L (10-20); BUN (Urea Nitrogen) 18 mg/dL (8.9-20.6); Bilirubin, Total 0.6 mg/dL (0.2-1.2); Calc. Creatinine Clearance 0 mL/min (70-130); Calcium 9.9 mg/dL (7.8-10.44); Carbon Dioxide 30 mmol/L (22-29); Chloride 99 mmol/L (98-107); Estimated GFR 23; Globulin 2.9 g/dL (2.4-3.5); Glucose 94 mg/dL (70-105); Potassium 3.4 mmol/L (3.5-5.1); Protein, Total 7.5 g/dL (6.0-8.3); Sodium 139 mmol/L (136-145)
[2022-12-02 18:20] LABS: #Eosinphils 0.1 thou/uL (0.0-0.7); #Lymphocytes 1.4 thou/uL (1.20-3.40); #Monocytes 0.3 thou/uL (0.11-0.59); #Neutrophils 4.6 thou/uL (1.40-6.50); %Basophils 0.3 % (0.0-1.0); %Eosinophils 1.6 % (0.0-10.0); %Lymphocytes 21.6 % (21.0-51.0); %Monocytes 4.9 % (0.0-10.0); %Neutrophils 71.6 % (42.0-75.0); Hemoglobin 12.8 g/dL (14.0-18.0); Mean Corpuscular HGB CONC 37.3 g/dL (32.0-36.0); Mean Corpuscular Hemoglobin 32.4 pg (27.0-31.0); Mean Corpuscular Volume 86.8 fl (78.0-98.0); Platelet Count 245 10x3/uL (130-400); RBC Distribution Width 11.8 % (11.5-14.5); Red Blood Cell (RBC) Count 3.95 mill/uL (4.70-6.10); White Blood Cell (WBC) Count 6.5 10x3/uL (4.8-10.8)
[2022-12-02 18:35] LABS: CKMB 1.5 ng/mL (0-6.6)
== END 2022-12-02 19:33 | disposition home or self-care (01) ==
LOC: ERS 17:09
DX: I12.0 Hypertensive chronic kidney disease with stage 5 chronic kidney disease or end stage renal disease (principal); N18.6 End stage renal disease; Z99.2 Dependence on renal dialysis; Z20.822 Contact with and (suspected) exposure to COVID-19; F17.220 Nicotine dependence, chewing tobacco, uncomplicated
CPT/HCPCS: 36415; 71045; 80053; 82553; 83605; 84484; 85025; 93005; 96374; 96375; J2270; J2405; U0003; U0005

== ENCOUNTER 2022-12-03 10:59 | Emergency (ER) | payer OTHER ==
[2022-12-03 11:25] LABS: #Eosinphils 0.2 thou/uL (0.0-0.7); #Monocytes 0.5 thou/uL (0.11-0.59); #Neutrophils 6.2 thou/uL (1.40-6.50); %Eosinophils 1.8 % (0.0-10.0); %Lymphocytes 22.4 % (21.0-51.0); %Monocytes 5.2 % (0.0-10.0); %Neutrophils 70.5 % (42.0-75.0); Hemoglobin 12.1 g/dL (14.0-18.0); Mean Corpuscular HGB CONC 35.5 g/dL (32.0-36.0); Mean Corpuscular Hemoglobin 31.5 pg (27.0-31.0); Mean Corpuscular Volume 88.6 fl (78.0-98.0); Mean Platelet Volume 6.9 fL (7.4-10.4); Platelet Count 278 10x3/uL (130-400); RBC Distribution Width 11.8 % (11.5-14.5); Red Blood Cell (RBC) Count 3.85 mill/uL (4.70-6.10); White Blood Cell (WBC) Count 8.7 10x3/uL (4.8-10.8)
[2022-12-03] MEDS ORDERED: Ondansetron PF 4 MG/2 ML Vial ONE (11:35)
[2022-12-03] MEDS ORDERED: Morphine 4 MG/ML VIAL ONE (11:35)
[2022-12-03 12:00] LABS: ALT (SGPT) 38 U/L (8-55); AST (SGOT) 20 U/L (5-34); Albumin 4.4 g/dL (3.5-5.0); Alkaline Phosphatase 64 U/L (40-110); Anion Gap 17 mmol/L (10-20); BUN (Urea Nitrogen) 34 mg/dL (8.9-20.6); Bilirubin, Total 0.4 mg/dL (0.2-1.2); Calc. Creatinine Clearance 0 mL/min (70-130); Calcium 9.5 mg/dL (7.8-10.44); Carbon Dioxide 26 mmol/L (22-29); Chloride 100 mmol/L (98-107); Estimated GFR 12; Globulin 2.8 g/dL (2.4-3.5); Glucose 95 mg/dL (70-105); Lipase 103 U/L (8-78); Potassium 4.2 mmol/L (3.5-5.1); Protein, Total 7.2 g/dL (6.0-8.3); Sodium 139 mmol/L (136-145)
[2022-12-03 12:07] LABS: CKMB 1.4 ng/mL (0-6.6)
[2022-12-03] MEDS ORDERED: Iopamidol-370 76% 500 ML MDV (1 ML CHARGE) ONE (13:49)
== END 2022-12-03 13:59 | disposition home or self-care (01) ==
LOC: ERS 10:59
DX: R11.2 Nausea with vomiting, unspecified (principal); I12.0 Hypertensive chronic kidney disease with stage 5 chronic kidney disease or end stage renal disease; N18.6 End stage renal disease; R10.84 Generalized abdominal pain; E03.9 Hypothyroidism, unspecified; E78.00 Pure hypercholesterolemia, unspecified; F17.220 Nicotine dependence, chewing tobacco, uncomplicated; Z79.899 Other long term (current) drug therapy
CPT/HCPCS: 36415; 74177; 80053; 82553; 83690; 84484; 85025; 93005; 96374; 96375; J2270; J2405; Q9967

== ENCOUNTER 2023-09-28 08:59 | Outpatient (CLI) | payer MEDICARE | END 2023-09-28 09:00 | disposition home or self-care (01) | LOC: CT 08:59 | PROVIDERS: ATTEND Family Medicine | DX: Z48.22 Encounter for aftercare following kidney transplant (principal); N13.30 Unspecified hydronephrosis; Z94.0 Kidney transplant status | CPT/HCPCS: 74176 ==

== ENCOUNTER 2023-10-11 02:23 | Inpatient (IN) | payer MEDICARE ==
[2023-10-11] MEDS: Lidocaine 2% Viscous 10 mL, Alum & Magn 30 mL SSW SCH (03:30)
[2023-10-11] MEDS ORDERED: Dicyclomine 20 MG TAB ONE (03:32)
[2023-10-11 03:46] LABS: Hematocrit 41.5 % (42.0-52.0); Hemoglobin 14.3 g/dL (14.0-18.0); Manual Diff?? YES; Mean Corpuscular HGB CONC 34.5 g/dL (32.0-36.0); Mean Corpuscular Hemoglobin 29.4 pg (27.0-31.0); Mean Corpuscular Volume 85.2 fl (78.0-98.0); Mean Platelet Volume 9.8 fL (7.4-10.4); Platelet Count 266 10x3/uL (130-400); RBC Distribution Width 13.5 % (11.5-14.5); Red Blood Cell (RBC) Count 4.87 mill/uL (4.70-6.10)
[2023-10-11 03:52] LABS: Delete Auto Diff?? YES
[2023-10-11 04:13] LABS: Band 1 % (5-11); CellaVision Operator ID lab.abc; Large Platelets 0.9 % (0-5); Lymphocytes 8 % (21-51); Monocytes 3 % (0-10); Neutrophil 87 % (42-75); Platelet Adequacy Comment Platelets Normal; RBC Morphology Within Normal Limits; Reactive Lymphocytes 1 % (0-10); Smudge Cells 7.5 %; Total Cell Count 106
[2023-10-11 04:56] LABS: ALT (SGPT) 34 U/L (8-55); AST (SGOT) 28 U/L (5-34); Albumin 4.9 g/dL (3.5-5.0); Alkaline Phosphatase 56 U/L (40-110); Anion Gap 13 mmol/L (10-20); BUN (Urea Nitrogen) 20 mg/dL (8.9-20.6); Bilirubin, Total 0.5 mg/dL (0.2-1.2); Calc. Creatinine Clearance 0 mL/min (70-130); Calcium 9.9 mg/dL (7.8-10.44); Carbon Dioxide 23 mmol/L (22-29); Chloride 106 mmol/L (98-107); Estimated GFR 41; Globulin 2.6 g/dL (2.4-3.5); Glucose 131 mg/dL (70-105); Lipase 31 U/L (8-78); Protein, Total 7.5 g/dL (6.0-8.3); Sodium 138 mmol/L (136-145)
[2023-10-11 05:09] LABS: Bacteria/HPF None Seen HPF (None Seen); Bilirubin Negative (Negative); Blood, Urine Negative (Negative); CAUTI Indications for Culture Pelvic or flank pain; Clarity Clear (Clear); Glucose, Urine (Dipstick) Normal (Negative); Ketone, Urine Negative (Negative); Leukocyte Negative Leu/uL (Negative); Nitrite Negative (Negative); Protein, Urine (Dipstick) Negative (Neg-Trace); RBC/HPF 0-3 HPF (0-3); Specific Gravity, Urine 1.015 (1.002-1.036); Squamous Epithelial 0-3 HPF (0-3); Urobilinogen Normal mg/dL (Less than 2); WBC/HPF None Seen HPF (0-3); pH, Urine 6.5 (5.0-9.0)
[2023-10-11 05:10] LABS: Urine Culture Reflex No No
[2023-10-11] MEDS ORDERED: Ondansetron PF 4 MG/2 ML Vial ONE ×2 (05:48→12:25)
[2023-10-11] MEDS ORDERED: Morphine 4 MG/ML VIAL ONE ×2 (05:48→10:51)
[2023-10-11 09:14] VITALS: BMI 34.1
[2023-10-11] MEDS ORDERED: hydrALAZINE 20 MG/ML VIAL SLOW IVP PRN (10:11)
[2023-10-11] MEDS ORDERED: Piperacillin/Tazobactam 3.375 GM in Sodium Chloride 0.9% 100 ML IVPB SCH ×2 (10:15→14:00)
[2023-10-11] MEDS ORDERED: Sodium Chloride 0.9% 1,000 ML IV SCH (10:15)
[2023-10-11] MEDS: Morphine 4 MG/ML VIAL SLOW IVP PRN (11:00)
[2023-10-11] MEDS: Sodium Chloride 0.9% 1,000 ML IV SCH (11:01)
[2023-10-11] MEDS ORDERED: Piperacillin/Tazobactam 3.375 GM VIAL ONE (11:05)
[2023-10-11] MEDS ORDERED: Sodium Chloride 0.9% 100 ML ONE (11:05)
[2023-10-11] MEDS: Piperacillin/Tazobactam 3.375 GM in Sodium Chloride 0.9% 100 ML IVPB SCH (11:08)
[2023-10-11 12:31] VITALS: BP 143/102; TEMP 97.9
[2023-10-11] MEDS ORDERED: Ondansetron PF 4 MG/2 ML Vial IVP PRN (13:22)
[2023-10-11] MEDS ORDERED: Non-Formulary Item 1 EACH (Hydralazine Hcl [Hydralazine Hcl] 50 MG Tablet) PO SCH (15:00)
[2023-10-11] MEDS ORDERED: hydrALAZINE 25 MG TAB PO SCH (15:00)
[2023-10-11] MEDS ORDERED: Tacrolimus 1 MG CAP PO SCH (21:00)
[2023-10-11] MEDS ORDERED: Carvedilol 25 MG TAB PO SCH (21:00)
[2023-10-11] MEDS ORDERED: Mycophenolate 250 MG CAP PO SCH (21:00)
[2023-10-11] MEDS ORDERED: NIFEdipine XL 30 MG ER.TAB PO SCH (21:00)
[2023-10-11] MEDS ORDERED: Enoxaparin 30 MG (0.3 mL) SYRINGE SC SCH (21:00)
[2023-10-12] MEDS ORDERED: Levothyroxine 150 MCG TAB PO SCH (09:00)
[2023-10-12] MEDS ORDERED: Pantoprazole 40 MG VIAL IVP SCH (09:00)
[2023-10-12] MEDS ORDERED: Tacrolimus 1 MG CAP PO SCH (09:00)
[2023-10-12] MEDS ORDERED: NIFEdipine XL 30 MG ER.TAB PO SCH (09:00)
[2023-10-18] MEDS ORDERED: Levothyroxine 150 MCG TAB PO SCH (06:00)
== END 2023-10-11 18:12 | disposition short-term general hospital (02) | DRG 389 ==
LOC: ERS 02:23 → ERHOLD 07:45
PROVIDERS: ADMIT Specialist; ATTEND Specialist
DX: K56.609 Unspecified intestinal obstruction, unspecified as to partial versus complete obstruction (principal); Z94.0 Kidney transplant status; E78.00 Pure hypercholesterolemia, unspecified; I10 Essential (primary) hypertension; Z88.8 Allergy status to other drugs, medicaments and biological substances
CPT/HCPCS: 36415; 74018; 74176; 76705; 80053; 81001; 83690; 85025; 96374; 96375; J2270; J2405; J2543; J3490; J7050

== ENCOUNTER 2023-10-18 16:00 | Outpatient (CLI) | payer MEDICARE | END 2023-10-18 16:01 | disposition home or self-care (01) | LOC: SLEEPLAB 16:00 | PROVIDERS: ATTEND Family Medicine | DX: R06.83 Snoring (principal); R51.9 Headache, unspecified; I10 Essential (primary) hypertension; G47.00 Insomnia, unspecified | CPT/HCPCS: 95800 ==

== ENCOUNTER 2024-08-31 21:27 | Emergency (ER) | payer BC, MEDICARE ==
[2024-08-31] MEDS ORDERED: HYDROcodone/Acetaminophen 5/325 mg Tablet ONE (23:50)
== END 2024-09-01 00:05 | disposition home or self-care (01) ==
LOC: ERS 21:27
DX: S62.032A Displaced fracture of proximal third of navicular [scaphoid] bone of left wrist, initial encounter for closed fracture (principal); I10 Essential (primary) hypertension; W22.8XXA Striking against or struck by other objects, initial encounter; Y93.89 Activity, other specified
CPT/HCPCS: 29125